=== PATIENT | female | born 1945 | race Caucasian/White ===

== ENCOUNTER 2017-07-16 07:55 | Day surgery (SDC) | payer OTHER ==
[~2017-07-16] VITALS: Ht 157.5 cm; Wt 84.8 kg
[~2017-07-16 07:55] MED LIST: ACET325 PO; ACET500; ASPI325; ASPI81EC PO; ATOR10 PO; CIPR500 PO; CYCL10; CYCL10 PO; Esgic Tablet1 EACH PO; FENO48 PO; FISH1000 PO; HTN MEDICATION; HYDACE5 PO; IBUP200 PO; INSUASPI SC; INSUASPI SS; INSULANPEN SC; LEVO750 PO; LEVOCETIRIZINE; LEVOCETIRIZINE D5 MG PO; LISI5 PO; LOPE2EL PO; LOSA25 PO; LOSA50 PO; LOVA40; METF500 PO; NITR.6SL; Nitrostat0.4 MG SL; OSEL75CA PO; Omeprazole20 M1; PROACE100 PO; PROM25 PO; RANI150 PO; RXDIPATR PO; SIMV10 PO; TRIHYD253A PO
[2018-02-11] MEDS ORDERED: METO50ER PO (14:34)
[2018-02-11] MEDS ORDERED: Allergy Relief10 M1 PO (14:35)
[2018-02-11] MEDS ORDERED: LOSARTAN POTAS100 MG PO (14:35)
[2018-02-11] MEDS ORDERED: Metformin HCl1000 MG PO (14:35)
[2018-02-14] MEDS ORDERED: LOSA50 PO (09:36)
[2018-02-14] MEDS ORDERED: CREON DR 12,001 EACH PO (09:38)
[2018-04-06] MEDS ORDERED: Advair Hfa 230-12 GM INH (10:27)
[2018-05-13] MEDS ORDERED: AMLO5 PO (17:58)
[2018-05-13] MEDS ORDERED: LOSARTAN POTAS100 MG PO (17:58)
[2018-05-16] MEDS ORDERED: Metoprolol Tar100 MG PO (11:00)
[2018-05-16] MEDS ORDERED: VANCOMYCIN125 MG/2.5 PO (11:01)
[2018-05-16] MEDS ORDERED: SACC250C PO (11:02)
== END 2017-07-16 22:58 | disposition home or self-care (01) ==
LOC: ORSCMMR 07:55
DX: R13.14 Dysphagia, pharyngoesophageal phase (principal); E11.9 Type 2 diabetes mellitus without complications; E78.00 Pure hypercholesterolemia, unspecified; K21.9 Gastro-esophageal reflux disease without esophagitis; J44.9 Chronic obstructive pulmonary disease, unspecified; R19.2 Visible peristalsis; Z87.891 Personal history of nicotine dependence; Z79.84 Long term (current) use of oral hypoglycemic drugs; Z79.4 Long term (current) use of insulin; Z79.899 Other long term (current) drug therapy
CPT/HCPCS: 82947; 88305; 88342; C1726; J7120

== ENCOUNTER 2017-10-01 21:36 | Emergency (ER) | payer OTHER ==
[~2017-10-01] VITALS: Ht 157.5 cm; Wt 83.0 kg
[2017-10-01] MEDS ORDERED: Cyclobenzaprine5 MG PO (23:49)
[2018-02-11] MEDS ORDERED: METO50ER PO (14:34)
[2018-02-11] MEDS ORDERED: Allergy Relief10 M1 PO (14:35)
[2018-02-11] MEDS ORDERED: LOSARTAN POTAS100 MG PO (14:35)
[2018-02-11] MEDS ORDERED: Metformin HCl1000 MG PO (14:35)
[2018-02-14] MEDS ORDERED: LOSA50 PO (09:36)
[2018-02-14] MEDS ORDERED: CREON DR 12,001 EACH PO (09:38)
[2018-04-06] MEDS ORDERED: Advair Hfa 230-12 GM INH (10:27)
[2018-05-13] MEDS ORDERED: AMLO5 PO (17:58)
[2018-05-13] MEDS ORDERED: LOSARTAN POTAS100 MG PO (17:58)
[2018-05-16] MEDS ORDERED: Metoprolol Tar100 MG PO (11:00)
[2018-05-16] MEDS ORDERED: VANCOMYCIN125 MG/2.5 PO (11:01)
[2018-05-16] MEDS ORDERED: SACC250C PO (11:02)
== END 2017-10-02 | disposition home or self-care (01) ==
LOC: ER 21:36
DX: M43.6 Torticollis (principal); Z88.8 Allergy status to other drugs, medicaments and biological substances; Z88.0 Allergy status to penicillin; Z88.5 Allergy status to narcotic agent; Z79.899 Other long term (current) drug therapy; Z79.84 Long term (current) use of oral hypoglycemic drugs; Z79.4 Long term (current) use of insulin; I10 Essential (primary) hypertension; E11.9 Type 2 diabetes mellitus without complications; Z87.891 Personal history of nicotine dependence
CPT/HCPCS: 96372; 99283; J1885

== ENCOUNTER 2018-04-13 08:10 | Day surgery (SDC) | payer OTHER ==
[~2018-04-13] VITALS: Ht 154.9 cm; Wt 81.2 kg
[~2018-04-13 08:10] MED LIST changes: +Advair Hfa 230-12 GM INH; +Allergy Relief10 M1 PO; +CREON DR 12,001 EACH PO; +Cyclobenzaprine5 MG PO; +LOSARTAN POTAS100 MG PO; +METO50ER PO; +Metformin HCl1000 MG PO
== END 2018-04-13 22:52 | disposition home or self-care (01) ==
LOC: ORSCMMR 08:10 → ORD 09:45 → ORSCMMR 22:52
PROVIDERS: Surgery
PROC: 0FT44ZZ Resection of Gallbladder, Percutaneous Endoscopic Approach (ICD-10-PCS; principal; 2018-04-13 09:45)
PROC: BF131ZZ Fluoroscopy of Gallbladder and Bile Ducts using Low Osmolar Contrast (ICD-10-PCS; principal; 2018-04-13 09:45)
DX: K81.1 Chronic cholecystitis (principal); I10 Essential (primary) hypertension; E11.9 Type 2 diabetes mellitus without complications; J44.9 Chronic obstructive pulmonary disease, unspecified; Z87.891 Personal history of nicotine dependence; E03.9 Hypothyroidism, unspecified; J45.909 Unspecified asthma, uncomplicated; E66.01 Morbid (severe) obesity due to excess calories; Z68.39 Body mass index [BMI] 39.0-39.9, adult; Z79.899 Other long term (current) drug therapy
CPT/HCPCS: 74300; 82947; 88304; C1729; J0330; J2250; J2370; J2405; J2710; J2765; J3010; J7030; J7120

== ENCOUNTER 2018-04-18 19:52 | Emergency (ER) | payer OTHER ==
[~2018-04-18] VITALS: Ht 157.5 cm; Wt 80.3 kg
[2018-04-18] MEDS ORDERED: Cleocin HCl300 MG PO (20:30)
== END 2018-04-18 20:37 | disposition home or self-care (01) ==
LOC: ER 19:52
DX: T81.49XA Infection following a procedure, other surgical site, initial encounter (principal); L03.311 Cellulitis of abdominal wall; I10 Essential (primary) hypertension; E11.9 Type 2 diabetes mellitus without complications; Z87.891 Personal history of nicotine dependence
CPT/HCPCS: 99283

== ENCOUNTER 2018-08-17 19:33 | Inpatient (IN) | payer OTHER ==
[~2018-08-17] VITALS: Ht 157.5 cm; Wt 77.0 kg
[~2018-08-17 19:33] MED LIST changes: +AMLO5 PO; +Cleocin HCl300 MG PO; +Metoprolol Tar100 MG PO; +SACC250C PO; +VANCOMYCIN125 MG/2.5 PO
[2018-08-17 21:25] LABS: BASOPHILS ABSOLUTE AUTO 0.13 K/mm3 (0.00-0.23); BASOPHILS PERCENT AUTO 1 % (0-2); EOSINOPHILS ABSOLUTE AUTO 0.27 K/mm3 (0.00-0.68); EOSINOPHILS PERCENT AUTO 1 % (0-6); Hematocrit 47.3 % (33.0-51.0); Hemoglobin 14.5 g/dL (11.5-16.0); IMMATURE GRAN PERCENT AUTO 1 % (0-1); LYMPHOCYTES ABSOLUTE AUTO 4.15 K/mm3 (0.84-5.20); LYMPHOCYTES PERCENT AUTO 15 % (21-46); MONOCYTES ABSOLUTE AUTO 1.16 K/mm3 (0.16-1.47); MONOCYTES PERCENT AUTO 4 % (4-13); Mean Corpuscular HGB 30.2 pg (26.0-34.0); Mean Corpuscular HGB Conc 30.7 g/dL (31.5-36.5); Mean Corpuscular Volume 99 fL (80-100); Mean Platelet Volume 10.5 fL (9.1-12.4); NEUTROPHILS ABSOLUTE AUTO 21.59 K/mm3 (1.96-9.15); NEUTROPHILS PERCENT AUTO 79 % (41-73); Platelet Count 385 K/mm3 (150-400); RDW Coefficient Variation 14.9 % (11.7-14.2); RDW Standard Deviation 54.6 fL (35.1-46.3)
[2018-08-17 21:39] LABS: Alanine Aminotransfer (ALT/SGP 29 U/L (12-78); Albumin, Blood 3.9 g/dL (3.4-5.0); Alk Phos 50 U/L (50-136); Anion Gap 9 mmol/L (6-16); Aspartate Aminotrans (AST/SGOT 16 U/L (12-37); Bilirubin, Total 0.4 mg/dL (0.1-1.0); Blood Urea Nitrogen 29 mg/dL (8-24); Bun/Creatinine Ratio 33.2 (12.0-20.0); CO2, Blood 21 mmol/L (21-32); Calcium, Blood 9.2 mg/dL (8.5-10.1); Chloride, Blood 109 mmol/L (98-108); Creatinine, Blood 0.87 mg/dL (0.40-1.00); Globulin, Blood 3.8 g/dL (2.2-4.0); Glomerular Filtration Rate >60 (60-); Glucose, Blood 162 mg/dL (70-99); Potassium, Blood 3.9 mmol/L (3.5-5.5); Sodium, Blood 139 mmol/L (136-145); Total Protein, Blood 7.7 g/dL (6.4-8.2); Troponin I <0.015 ng/mL (0.000-0.040)
[2018-08-17 22:22] LABS: Source, Urine Clean Catch
[2018-08-17 22:25] LABS: Blood, Urine 1+ (Neg); Glucose Qualitative, Urine Neg (Neg); Ketones, Urine Neg (Neg); Leukocyte Esterase, Urine Neg (Neg); Nitrite, Urine Neg (Neg); Protein, Urine 2+ (Neg); Specific Gravity, Urine 1.025 (1.003-1.022); Urobilinogen, Urine NORM (Normal)
[2018-08-17 23:05] LABS: Appearance, Urine Hazy (Clear); Color, Urine Yellow (P-Yellow)
[2018-08-17 23:06] LABS: Bilirubin, Urine 1+ (Neg)
[2018-08-17 23:07] LABS: Bacteria Rare /hpf; Red Blood Cells, Urine 0-2 /hpf (0-2); Squamous Epithelial Cells Few /hpf (Few); White Blood Cells, Urine 0-2 /hpf (0-5)
[2018-08-17 23:08] LABS: Hyaline Casts 0-2 /lpf (0-2)
[2018-08-18] MEDS ORDERED: ALLERGY MED (01:24)
[2018-08-18 03:42] LABS: BASOPHILS ABSOLUTE AUTO 0.04 K/mm3 (0.00-0.23); BASOPHILS PERCENT AUTO 0 % (0-2); EOSINOPHILS ABSOLUTE AUTO 0.16 K/mm3 (0.00-0.68); EOSINOPHILS PERCENT AUTO 1 % (0-6); Hematocrit 40.2 % (33.0-51.0); Hemoglobin 12.2 g/dL (11.5-16.0); IMMATURE GRAN ABSOLUTE AUTO 0.03 K/mm3 (0.00-0.10); IMMATURE GRAN PERCENT AUTO 0 % (0-1); LYMPHOCYTES ABSOLUTE AUTO 1.08 K/mm3 (0.84-5.20); LYMPHOCYTES PERCENT AUTO 8 % (21-46); MONOCYTES PERCENT AUTO 5 % (4-13); Mean Corpuscular HGB 30.3 pg (26.0-34.0); Mean Corpuscular HGB Conc 30.3 g/dL (31.5-36.5); Mean Corpuscular Volume 100 fL (80-100); NEUTROPHILS PERCENT AUTO 85 % (41-73); Platelet Count 274 K/mm3 (150-400); RDW Coefficient Variation 15.1 % (11.7-14.2); Red Blood Cell Count 4.03 M/mm3 (3.80-5.20); White Blood Cell Count 13.01 K/mm3 (4.00-11.30)
[2018-08-18 03:54] LABS: Alanine Aminotransfer (ALT/SGP 20 U/L (12-78); Albumin, Blood 3.2 g/dL (3.4-5.0); Alk Phos 42 U/L (50-136); Anion Gap 9 mmol/L (6-16); Aspartate Aminotrans (AST/SGOT 10 U/L (12-37); Bilirubin, Total 0.5 mg/dL (0.1-1.0); Blood Urea Nitrogen 28 mg/dL (8-24); Bun/Creatinine Ratio 33.4 (12.0-20.0); CO2, Blood 20 mmol/L (21-32); Calcium, Blood 7.6 mg/dL (8.5-10.1); Chloride, Blood 112 mmol/L (98-108); Creatinine, Blood 0.84 mg/dL (0.40-1.00); Globulin, Blood 3.2 g/dL (2.2-4.0); Glomerular Filtration Rate >60 (60-); Glucose, Blood 142 mg/dL (70-99); Potassium, Blood 4.3 mmol/L (3.5-5.5); Sodium, Blood 141 mmol/L (136-145); Total Protein, Blood 6.4 g/dL (6.4-8.2)
--- NOTE | 2018-08-18 05:37 | NUR ---
CLARIFIED IVF ORDERS AND MD INSTRUCTED TO TURN DOWN RATE TO 150 ML/HR NOW TO COMPLETE CURRENT BAG THEN COMMENCE 1 ADDITIONAL BAG OF NS AT 150 ML/HR SINCE LACTIC ACID REFLUX RESULT IS WNL.
--- NOTE | 2018-08-18 06:12 | NUR ---
T/F AND SUMMARY: REPORT RECIEVED FROM [facility] [employer] AND PT T/F TO ROOM 335 AT 0100 VIA [employer]. PT IS A/OX4, CALLS APPROPRIATELY AND SPECIFIES NEEDS. SBA PROVIDED TO BSC. SHE HAS HX C.DIFF INFECTION FROM 04/30 IN CONTACT ISOLATION FOR GI PANEL COLLECTION. UNABLE TO OBTAIN STOOL THIS SHIFT D/T NO BM. IVF NOW INFUSING AT 150 ML/HR PER NEW ORDER. LACTIC ACID TRENDED DOWN AND IS NOW WNL. ORAL VANCO RECIEVED. TYLENOL PROVIDED FOR TOLERABLE RELIEF OF DEVI. PT DENIED NEEDING PRN NAUSEA MED BUT ORDER OBTAINED PRN. NO N/V/D THIS SHIFT. WBC'S IMPROVED THIS AM, NOW 13.01. NO ACUTE CHANGES, VSS/AFEBRILE. PT HAD ELEVATED BP BUT HAS HX HTN AND HAS IMPROVED SOME SINCE ER ADMISSION. SCHEDULED MEDS TO BE RECIEVED THIS AM. WILL MONITOR AND REPORT TO DAY RN.
--- NOTE | 2018-08-18 13:40 | NUR ---
PT. UP TO BATHROOM, PRESENTED WITH SMALL SOFTLY FORMED BROWN STOOL. NOTIFIED DR. VACA ABOUT THE SIZE, SHAPE AND COLOR OF STOOL. LET HER NO PT. HAS NOT HAD ANY STOOL PREVIOUSLY, DENIES PAIN, N/V, AND WEAKNESS. DR. VACA ORDERED STOOL SAMPLE DID NOT BE SENT IN LIGHT OF INFORMATION GIVEN HER.
--- NOTE | 2018-08-18 18:00 | NUR ---
PT. SITTING IN BED WATCHING T.V. NO FURTHER BOWEL MOVEMENTS THIS SHIFT. SAYS SHE FEELS MUCH BETTER THIS EVENING.
--- NOTE | 2018-08-19 01:58 | NUR ---
POSITIVE BLOOD CULTURE. NOTIFIED BY LAB @ 0011. PLACED CALL TO HOSPITALIST REGARDING GRAM POS COCCI IN CLUSTERS. PT AFEBRILE. NO NEW ORDERS, CONT TO MONITOR PT.
[2018-08-19 05:11] LABS: BASOPHILS ABSOLUTE AUTO 0.04 K/mm3 (0.00-0.23); BASOPHILS PERCENT AUTO 1 % (0-2); EOSINOPHILS ABSOLUTE AUTO 0.23 K/mm3 (0.00-0.68); EOSINOPHILS PERCENT AUTO 3 % (0-6); Hematocrit 40.3 % (33.0-51.0); Hemoglobin 12.2 g/dL (11.5-16.0); IMMATURE GRAN ABSOLUTE AUTO 0.02 K/mm3 (0.00-0.10); IMMATURE GRAN PERCENT AUTO 0 % (0-1); LYMPHOCYTES ABSOLUTE AUTO 1.81 K/mm3 (0.84-5.20); LYMPHOCYTES PERCENT AUTO 24 % (21-46); MONOCYTES ABSOLUTE AUTO 0.54 K/mm3 (0.16-1.47); MONOCYTES PERCENT AUTO 7 % (4-13); Mean Corpuscular HGB 29.9 pg (26.0-34.0); Mean Corpuscular HGB Conc 30.3 g/dL (31.5-36.5); Mean Corpuscular Volume 99 fL (80-100); NEUTROPHILS ABSOLUTE AUTO 4.87 K/mm3 (1.96-9.15); NEUTROPHILS PERCENT AUTO 65 % (41-73); Platelet Count 261 K/mm3 (150-400); RDW Standard Deviation 54.9 fL (35.1-46.3); Red Blood Cell Count 4.08 M/mm3 (3.80-5.20); White Blood Cell Count 7.51 K/mm3 (4.00-11.30)
[2018-08-19 05:43] LABS: Alanine Aminotransfer (ALT/SGP 22 U/L (12-78); Albumin/Globulin Ratio 0.9 (0.8-1.8); Alk Phos 41 U/L (50-136); Anion Gap 6 mmol/L (6-16); Aspartate Aminotrans (AST/SGOT 14 U/L (12-37); Bilirubin, Total 0.6 mg/dL (0.1-1.0); Blood Urea Nitrogen 18 mg/dL (8-24); Bun/Creatinine Ratio 23.2 (12.0-20.0); CO2, Blood 24 mmol/L (21-32); Calcium, Blood 8.6 mg/dL (8.5-10.1); Chloride, Blood 113 mmol/L (98-108); Creatinine, Blood 0.78 mg/dL (0.40-1.00); Globulin, Blood 3.4 g/dL (2.2-4.0); Glomerular Filtration Rate >60 (60-); Glucose, Blood 127 mg/dL (70-99); Magnesium, Blood 1.9 mg/dL (1.6-2.4); Potassium, Blood 4.4 mmol/L (3.5-5.5); Sodium, Blood 143 mmol/L (136-145); Total Protein, Blood 6.4 g/dL (6.4-8.2)
--- NOTE | 2018-08-19 07:24 | NUR ---
SHIFT SUMMARY: NO ACUTE CHANGES THIS SHIFT. PT IS A&O X 4, CALL LIGHT APPROPRIATE. NO N/V/D THIS SHIFT. PT DENIES ANY GI DISCOMFORT OR PAIN. BS NORMOACTIVE X4, TENDER, MILD DISTENTION. PT C/O HEADACHE 1X AND IS TREATED c PRN TYLENOL. WILL CONT TO MONITOR AND PROVIDE CARE UNTIL PRESUMED BY ONCOMING RN.
--- NOTE | 2018-08-19 13:09 | NUR ---
PT. DISCHARGED HOME WITH SON. NO NEW MEDS ORDERED. ACKNOWLEDGED UNDERSTANDING OF DISCHARGE INSTRUCTIONS.
== END 2018-08-19 13:06 | disposition home or self-care (01) | DRG 872 ==
LOC: ER 19:33 → MEDS 23:57
PROVIDERS: Emergency Medicine; Internal Medicine; ADMIT Hospitalist
DX: A41.9 Sepsis, unspecified organism (principal); K86.1 Other chronic pancreatitis; A04.72 Enterocolitis due to Clostridium difficile, not specified as recurrent; E11.9 Type 2 diabetes mellitus without complications; Z66 Do not resuscitate; Z88.5 Allergy status to narcotic agent; I10 Essential (primary) hypertension; E78.5 Hyperlipidemia, unspecified; E86.0 Dehydration; R65.20 Severe sepsis without septic shock; Z88.0 Allergy status to penicillin; Z88.8 Allergy status to other drugs, medicaments and biological substances; Z87.891 Personal history of nicotine dependence; Z79.4 Long term (current) use of insulin; Z79.51 Long term (current) use of inhaled steroids; Z79.899 Other long term (current) drug therapy
CPT/HCPCS: 36415; 71046; 80053; 81001; 83605; 83690; 83735; 84484; 85025; 87040; 93005; 93010; 94640; 94760; 96361; 96374; 99285-25; J1650; J2405; J7030

== ENCOUNTER 2019-02-08 12:30 | Emergency (ER) | payer OTHER ==
[~2019-02-08] VITALS: Ht 157.5 cm; Wt 81.7 kg
[~2019-02-08 12:30] MED LIST changes: +ALLERGY MED
== END 2019-02-08 14:57 | disposition home or self-care (01) ==
LOC: ER 12:30
DX: S62.346A Nondisplaced fracture of base of fifth metacarpal bone, right hand, initial encounter for closed fracture (principal); S00.83XA Contusion of other part of head, initial encounter; S50.01XA Contusion of right elbow, initial encounter; W18.09XA Striking against other object with subsequent fall, initial encounter; Z88.0 Allergy status to penicillin; Z88.8 Allergy status to other drugs, medicaments and biological substances; Z88.5 Allergy status to narcotic agent; Z79.4 Long term (current) use of insulin; Z79.899 Other long term (current) drug therapy; I10 Essential (primary) hypertension; E11.9 Type 2 diabetes mellitus without complications; Z85.3 Personal history of malignant neoplasm of breast; E78.5 Hyperlipidemia, unspecified; Z87.891 Personal history of nicotine dependence
CPT/HCPCS: 29125; 70450; 70486; 72125; 73030; 73080; 73130; 99284-25

== ENCOUNTER → 2019-08-04 | Outpatient (CLI) | payer OTHER ==
[2019-08-04 10:35] LABS: Creatinine Urine 43.5 mg/dL (27.00-270.00); Protein, Urine Quantitative 8.1 mg/dL (0.0-11.9)
[2019-08-04 10:37] LABS: Microalbumin, Urine Quant. 23.8 mg/L (0.000-20.000)
== END | disposition home or self-care (01) ==
LOC: LAB 01:00 → LAB SHORT 01:00 → LAB FUT 08-02 10:40
PROVIDERS: Internal Medicine Nephrology
DX: Z79.01 Long term (current) use of anticoagulants (principal); Z51.81 Encounter for therapeutic drug level monitoring; N18.2 Chronic kidney disease, stage 2 (mild); D63.1 Anemia in chronic kidney disease; R80.9 Proteinuria, unspecified; N25.81 Secondary hyperparathyroidism of renal origin; E55.9 Vitamin D deficiency, unspecified
CPT/HCPCS: 81050; 82043; 82570; 84156

== ENCOUNTER 2019-09-20 10:27 | Day surgery (SDC) | payer OTHER ==
[~2019-09-20] VITALS: Ht 157.5 cm; Wt 82.2 kg
[~2019-09-20 10:27] MED LIST changes: +ALBU90OI INH; +FLUT1DIS5 INH; +PANT40 PO
--- NOTE | 2019-09-20 11:43 | NUR ---
"DAY SURGERY RN | ADMIT PATIENT READY FOR EGD."
--- NOTE | 2019-09-20 11:57 | NUR ---
"DAY SURGERY RN | REPORT TO HOANG GROVES"
--- NOTE | 2019-09-20 12:14 | NUR ---
09/20/19 1214 Rosana Butt History, Chart, Medications and Allergies reviewed before start of procedure. Patient confirms NPO status and agrees with scheduled surgery. PATIENT DETERMINED TO BE ASA APPROPRIATE FOR PROPOFOL SEDATION PRIOR TO START OF PROCEDURE BY DR. VELEZ. 3-LEAD EKG REVIEWED WITH PHYSICIAN PRIOR TO START OF PROCEDURE. MONITOR INTACT WITH CONTINUOUS PULSE OXIMETRY AND INTERMITTENT BP.
--- NOTE | 2019-09-20 13:20 | NUR ---
VSS. PT AXOX4. CAL PO. DENIES PAIN/NAUSEA. IV REMOVED. TIP INTACT. DRESSING PLACED. PT UP AND DRESSED INDEPENDENTLY. REVIEWED DC INSTRUCTIONS. PT ESCORTED OUT WITH STAFF VIA WC.
== END 2019-09-20 13:20 | disposition home or self-care (01) ==
LOC: ORSCMMR 10:27 → ORD 11:30 → ORSCMMR 11:30
PROVIDERS: Internal Medicine Gastroenterology
PROC: 3E0G8GC Introduction of Other Therapeutic Substance into Upper GI, Via Natural or Artificial Opening Endoscopic (ICD-10-PCS; principal; 2019-09-20 11:30)
PROC: 0DB48ZX Excision of Esophagogastric Junction, Via Natural or Artificial Opening Endoscopic, Diagnostic (ICD-10-PCS; principal; 2019-09-20 11:30)
PROC: 0DB68ZX Excision of Stomach, Via Natural or Artificial Opening Endoscopic, Diagnostic (ICD-10-PCS; principal; 2019-09-20 11:30)
PROC: 0D758ZZ Dilation of Esophagus, Via Natural or Artificial Opening Endoscopic (ICD-10-PCS; principal; 2019-09-20 11:30)
DX: R13.14 Dysphagia, pharyngoesophageal phase (principal); K22.0 Achalasia of cardia; K21.9 Gastro-esophageal reflux disease without esophagitis; E11.9 Type 2 diabetes mellitus without complications; I10 Essential (primary) hypertension; E78.00 Pure hypercholesterolemia, unspecified; Z79.4 Long term (current) use of insulin; Z79.899 Other long term (current) drug therapy; Z87.891 Personal history of nicotine dependence; J44.9 Chronic obstructive pulmonary disease, unspecified
CPT/HCPCS: 82947; 88305; 88342; C1726; J0585; J2704; J7120

== ENCOUNTER 2020-10-07 12:06 | Emergency (ER) | payer OTHER ==
[~2020-10-07] VITALS: Ht 154.9 cm; Wt 83.9 kg
[2020-10-07] MEDS ORDERED: BASAGLAR K100 UNIT/1 SC (13:28)
== END 2020-10-07 14:58 | disposition home or self-care (01) ==
LOC: ER 12:06
DX: S05.42XA Penetrating wound of orbit with or without foreign body, left eye, initial encounter (principal); S01.112A Laceration without foreign body of left eyelid and periocular area, initial encounter; S80.02XA Contusion of left knee, initial encounter; S80.01XA Contusion of right knee, initial encounter; S60.222A Contusion of left hand, initial encounter; Z88.0 Allergy status to penicillin; Z88.5 Allergy status to narcotic agent; Z88.8 Allergy status to other drugs, medicaments and biological substances; Z79.899 Other long term (current) drug therapy; Z79.4 Long term (current) use of insulin; Z87.891 Personal history of nicotine dependence; W18.30XA Fall on same level, unspecified, initial encounter
CPT/HCPCS: 70450; 71045; 72125; 73130; 73562-LT; 73562-RT; 96374; 96375; 99284-25; J2405; J3010

== ENCOUNTER 2021-06-28 05:18 | Emergency (ER) | payer OTHER ==
[~2021-06-28] VITALS: Ht 157.5 cm; Wt 85.7 kg
[~2021-06-28 05:18] MED LIST changes: +BASAGLAR K100 UNIT/1 SC
[2021-06-28 06:34] LABS: C-REACTIVE PROTEIN, EXT RANGE 13.2 mg/dL (0.000-0.300)
[2021-06-28 06:35] LABS: Albumin, Blood 3.2 g/dL (3.4-5.0); Albumin/Globulin Ratio 0.8 (0.8-1.8); Bilirubin, Total 0.4 mg/dL (0.1-1.0); Bun/Creatinine Ratio 20.6 (12.0-20.0); Calcium, Blood 8.2 mg/dL (8.5-10.1); Creatinine, Blood 1.31 mg/dL (0.40-1.00); Potassium, Blood 4.2 mmol/L (3.5-5.5); Total Protein, Blood 7.2 g/dL (6.4-8.2)
[2021-06-28 06:55] LABS: BASOPHILS ABSOLUTE AUTO 0.02 K/mm3 (0.00-0.23); BASOPHILS PERCENT AUTO 0 % (0-2); EOSINOPHILS ABSOLUTE AUTO 0.04 K/mm3 (0.00-0.68); EOSINOPHILS PERCENT AUTO 0 % (0-6); Hematocrit 40.2 % (33.0-51.0); Hemoglobin 12.9 g/dL (11.5-16.0); IMMATURE GRAN ABSOLUTE AUTO 0.08 K/mm3 (0.00-0.10); IMMATURE GRAN PERCENT AUTO 1 % (0-1); LYMPHOCYTES ABSOLUTE AUTO 1.71 K/mm3 (0.84-5.20); LYMPHOCYTES PERCENT AUTO 17 % (21-46); MONOCYTES PERCENT AUTO 7 % (4-13); Mean Corpuscular HGB 31.2 pg (26.0-34.0); Mean Corpuscular HGB Conc 32.1 g/dL (31.5-36.5); Mean Corpuscular Volume 97 fL (80-100); Mean Platelet Volume 10.1 fL (9.1-12.4); NEUTROPHILS ABSOLUTE AUTO 7.64 K/mm3 (1.96-9.15); NEUTROPHILS PERCENT AUTO 75 % (41-73); Platelet Count 260 K/mm3 (150-400); RDW Coefficient Variation 15.3 % (11.7-14.2); RDW Standard Deviation 55.2 fL (35.1-46.3); Red Blood Cell Count 4.14 M/mm3 (3.80-5.20); White Blood Cell Count 10.19 K/mm3 (4.00-11.30)
[2021-06-28 07:59] LABS: Influenza A, PCR NEGATIVE (NEGATIVE); Influenza B, PCR NEGATIVE (NEGATIVE); Resp Syncytial Virus, PCR NEGATIVE (NEGATIVE)
[2021-06-28 08:02] LABS: SARS-Cov-2 (COVID-19) PCR, MMC POSITIVE (NEGATIVE)
== END 2021-06-28 08:59 | disposition home or self-care (01) ==
LOC: ER 05:18
PROVIDERS: Emergency Medicine
DX: U07.1 COVID-19 (principal); J12.82 Pneumonia due to coronavirus disease 2019; I10 Essential (primary) hypertension; E11.9 Type 2 diabetes mellitus without complications; E78.5 Hyperlipidemia, unspecified; Z88.0 Allergy status to penicillin; Z88.5 Allergy status to narcotic agent; Z79.4 Long term (current) use of insulin; Z79.899 Other long term (current) drug therapy
CPT/HCPCS: 0241U; 36415; 71045; 80053; 85025; 86140; 93005; 93010; 99284-25; A9270

== ENCOUNTER 2022-07-29 10:19 | Emergency (ER) | payer OTHER ==
[~2022-07-29] VITALS: Ht 157.5 cm; Wt 81.7 kg
[2022-07-29 11:25] LABS: Influenza A, PCR NEGATIVE (NEGATIVE); Influenza B, PCR NEGATIVE (NEGATIVE); Resp Syncytial Virus, PCR NEGATIVE (NEGATIVE)
[2022-07-29 11:32] LABS: SARS-Cov-2 (COVID-19) PCR, MMC POSITIVE (NEGATIVE)
[2022-07-29 11:51] LABS: BASOPHILS ABSOLUTE AUTO 0.06 K/mm3 (0.00-0.23); BASOPHILS PERCENT AUTO 0 % (0-2); EOSINOPHILS ABSOLUTE AUTO 0.12 K/mm3 (0.00-0.68); EOSINOPHILS PERCENT AUTO 1 % (0-6); Hematocrit 39.2 % (33.0-51.0); Hemoglobin 12.9 g/dL (11.5-16.0); IMMATURE GRAN ABSOLUTE AUTO 0.08 K/mm3 (0.00-0.10); IMMATURE GRAN PERCENT AUTO 1 % (0-1); LYMPHOCYTES ABSOLUTE AUTO 1.42 K/mm3 (0.84-5.20); LYMPHOCYTES PERCENT AUTO 10 % (21-46); MONOCYTES ABSOLUTE AUTO 1.34 K/mm3 (0.16-1.47); MONOCYTES PERCENT AUTO 9 % (4-13); Mean Corpuscular HGB 31.8 pg (26.0-34.0); Mean Corpuscular HGB Conc 32.9 g/dL (31.5-36.5); Mean Corpuscular Volume 97 fL (80-100); Mean Platelet Volume 9.8 fL (9.1-12.4); NEUTROPHILS ABSOLUTE AUTO 11.68 K/mm3 (1.96-9.15); NEUTROPHILS PERCENT AUTO 80 % (41-73); Platelet Count 328 K/mm3 (150-400); RDW Coefficient Variation 14.5 % (11.7-14.2); RDW Standard Deviation 51.6 fL (35.1-46.3); Red Blood Cell Count 4.06 M/mm3 (3.80-5.20)
[2022-07-29 12:14] LABS: Albumin, Blood 3.7 g/dL (3.4-5.0); Albumin/Globulin Ratio 1.1 (0.8-1.8); Bilirubin, Total 0.7 mg/dL (0.1-1.0); Bun/Creatinine Ratio 20.2 (12.0-20.0); Calcium, Blood 9.7 mg/dL (8.5-10.1); Creatinine, Blood 0.89 mg/dL (0.40-1.00); Globulin, Blood 3.5 g/dL (2.2-4.0); Potassium, Blood 4.4 mmol/L (3.5-5.5); Total Protein, Blood 7.2 g/dL (6.4-8.2)
[2022-07-29] MEDS ORDERED: AZIT250 PO (13:06)
[2022-07-29] MEDS ORDERED: PAXLOVID 150-11 EACH PO (13:06)
== END 2022-07-29 13:17 | disposition home or self-care (01) ==
LOC: ER 10:19
PROVIDERS: Emergency Medicine
DX: U07.1 COVID-19 (principal); J18.9 Pneumonia, unspecified organism; I10 Essential (primary) hypertension; E11.9 Type 2 diabetes mellitus without complications; Z88.0 Allergy status to penicillin; Z88.5 Allergy status to narcotic agent; Z88.8 Allergy status to other drugs, medicaments and biological substances; Z79.4 Long term (current) use of insulin; Z79.899 Other long term (current) drug therapy
CPT/HCPCS: 0241U; 71045; 80053; 85025; J2405

== ENCOUNTER → 2022-12-16 | Outpatient (CLI) | payer OTHER ==
[~2022-12-16] MED LIST changes: +AZIT250 PO; +PAXLOVID 150-11 EACH PO
[2022-12-16 18:45] LABS: BASOPHILS ABSOLUTE AUTO 0.05 K/mm3 (0.00-0.23); BASOPHILS PERCENT AUTO 1 % (0-2); EOSINOPHILS ABSOLUTE AUTO 0.34 K/mm3 (0.00-0.68); EOSINOPHILS PERCENT AUTO 4 % (0-6); Hemoglobin 12.8 g/dL (11.5-16.0); IMMATURE GRAN ABSOLUTE AUTO 0.04 K/mm3 (0.00-0.10); IMMATURE GRAN PERCENT AUTO 0 % (0-1); LYMPHOCYTES ABSOLUTE AUTO 2.68 K/mm3 (0.84-5.20); LYMPHOCYTES PERCENT AUTO 29 % (21-46); MONOCYTES ABSOLUTE AUTO 0.65 K/mm3 (0.16-1.47); MONOCYTES PERCENT AUTO 7 % (4-13); Mean Corpuscular HGB 30.8 pg (26.0-34.0); Mean Corpuscular Volume 96 fL (80-100); Mean Platelet Volume 10.1 fL (9.1-12.4); NEUTROPHILS ABSOLUTE AUTO 5.51 K/mm3 (1.96-9.15); NEUTROPHILS PERCENT AUTO 60 % (41-73); Platelet Count 311 K/mm3 (150-400); RDW Coefficient Variation 14.5 % (11.7-14.2); RDW Standard Deviation 51.8 fL (35.1-46.3); Red Blood Cell Count 4.15 M/mm3 (3.80-5.20); White Blood Cell Count 9.27 K/mm3 (4.00-11.30)
[2022-12-16 18:57] LABS: Albumin, Blood 3.5 g/dL (3.4-5.0); Bilirubin, Total 0.8 mg/dL (0.1-1.0); Bun/Creatinine Ratio 26.1 (12.0-20.0); Calcium, Blood 9.4 mg/dL (8.5-10.1); Creatinine, Blood 0.77 mg/dL (0.40-1.00); Globulin, Blood 3.6 g/dL (2.2-4.0); Potassium, Blood 4.6 mmol/L (3.5-5.5); Total Protein, Blood 7.1 g/dL (6.4-8.2)
== END | disposition home or self-care (01) ==
LOC: LAB 12:20 → LAB SHORT 12:20
PROVIDERS: Physician Assistant
DX: B34.9 Viral infection, unspecified (principal)
CPT/HCPCS: 80053; 85025; 87081

== ENCOUNTER 2023-02-13 12:01 | Emergency (ER) | payer OTHER ==
[~2023-02-13] VITALS: Ht 162.6 cm; Wt 72.6 kg
[2023-02-13 12:26] VITALS: BP 139/116
[2023-02-13 13:41] LABS: Albumin, Blood 3.4 g/dL (3.4-5.0); Albumin/Globulin Ratio 1.1 (0.8-1.8); Bilirubin, Total 0.3 mg/dL (0.1-1.0); Bun/Creatinine Ratio 33.9 (12.0-20.0); Calcium, Blood 9.3 mg/dL (8.5-10.1); Creatinine, Blood 1.09 mg/dL (0.40-1.00); Potassium, Blood 5.2 mmol/L (3.5-5.5); Total Protein, Blood 6.4 g/dL (6.4-8.2)
[2023-02-13] MEDS ORDERED: OXYC5 PO (14:30)
== END 2023-02-13 18:29 | disposition home or self-care (01) ==
LOC: ER 12:01
PROVIDERS: Emergency Medicine
DX: S16.1XXA Strain of muscle, fascia and tendon at neck level, initial encounter (principal); S93.401A Sprain of unspecified ligament of right ankle, initial encounter; S09.90XA Unspecified injury of head, initial encounter; I10 Essential (primary) hypertension; E11.9 Type 2 diabetes mellitus without complications; Z88.0 Allergy status to penicillin; Z88.5 Allergy status to narcotic agent; Z88.8 Allergy status to other drugs, medicaments and biological substances; Z79.4 Long term (current) use of insulin; Z79.899 Other long term (current) drug therapy; Z87.891 Personal history of nicotine dependence; V43.62XA Car passenger injured in collision with other type car in traffic accident, initial encounter
CPT/HCPCS: 70450; 71260; 72125; 73610; 74177; 80053; 99284-25; Q9967